=== PATIENT | female | born 1970 | race Caucasian/White ===

== ENCOUNTER 2021-04-21 13:37 | Outpatient (CLI) | payer BC, SELFPAY ==
--- NOTE | 2021-04-21 13:30 | RT.EKG_ITS ---
APPROVED REPORT Exam: Resting ECG Reason for Exam: [employer]/ Office visit Baseline Patient Location: O HR:70 bpm ECG Measurements Heart Rate 70 AXIS SD 117 P 80 QRSd 96 QRS 98 QT 413 T 50 QTc 446 Conclusion Sinus rhythm...normal P axis, V-rate 50- 99 Borderline short SD interval...SD int <120mS Borderline right axis deviation...QRS axis ( 90, 99) Normal Electrocardiogram
== END 2021-04-21 13:38 | disposition home or self-care (01) ==
LOC: DI.CARD 13:38
PROVIDERS: Visit Provider Internal Medicine Cardiovascular Disease
DX: R00.1 Bradycardia, unspecified (principal)
CPT/HCPCS: 93010

== ENCOUNTER 2024-09-29 14:56 | Outpatient (CLI) | payer OTHER, SELFPAY ==
--- NOTE | 2024-09-29 10:45 | DI.RAD_ITS ---
Exam(s) XR FOOT RT COMPLETE EXAM: XR FOOT RT COMPLETE CLINICAL HISTORY: Right foot pain, M79.671. TECHNIQUE: 2D digital imaging was performed. COMPARISON: CR XR FOOT LT COMPLETE from 09/29/2024 FINDINGS: 3 views No evidence of acute fracture nor diastasis of the Lisfranc joint. Great toe metatarsophalangeal priscilla nt appears unremarkable. There is soft tissue swelling lateral to the head of the 5th metatarsal and proximal phalanx of the 5 th toe. There is no gas and no radiopaque foreign body at this level and no evidence of osteomyeliti s in the adjacent osseous structures. There is mild pes planus. No inferior calcaneal spur. No ent hesophytes. IMPRESSION: There is soft tissue swelling lateral to the head of the 5th metatarsal. No radiopaque foreign body at this level. No soft tissue calcifications. No subjacent osseous findings. DATA REPOSITORY: RADIATION DOSE DELIVERED:
--- NOTE | 2024-09-29 13:52 | DI.RAD_ITS ---
Exam(s) XR FOOT LT COMPLETE EXAM: XR FOOT LT COMPLETE CLINICAL HISTORY: Left foot pain, M79.672. TECHNIQUE: 2D digital imaging was performed. COMPARISON: No exams were available for comparison FINDINGS: 3 views No evidence of fracture or diastasis of the Lisfranc joint. Great toe metatarsophalangeal joint appe ars unremarkable. There is minimal if any significant soft tissue swelling lateral to the head of th e 5th metatarsal (as is present in the opposite-right Foot). Bone density normal. There are no osse ous lesions and no erosions. There is a moderate size inferior calcaneal spur noted. IMPRESSION: No acute osseous findings in the left foot. Moderate size inferior calcaneal spur evident. DATA REPOSITORY: RADIATION DOSE DELIVERED:
== END 2024-09-29 15:16 ==
LOC: DI 14:59
PROVIDERS: PCP Family Medicine; Visit Provider Podiatrist
DX: M79.672 Pain in left foot (principal); M79.671 Pain in right foot; M77.32 Calcaneal spur, left foot
CPT/HCPCS: 73630